=== PATIENT | male | born 1960 | race Caucasian/White ===

== ENCOUNTER 2017-10-14 12:32 | Observation (INO) | payer OTHER ==
[2017-10-14] MEDS ORDERED: SODIUM CHLORIDE 0.9% 1,000 ML IV ONE ×2 (12:50→13:20)
[2017-10-14 13:18] LABS: BASOPHILS # (AUTO) 0.1 10^3/uL (0.0-0.1); BASOPHILS % (AUTO) 0.4 %; EOSINOPHILS # (AUTO) 0.1 10^3/uL (0.0-0.7); HGB - HEMOGLOBIN 15.5 g/dL (14.0-18.0); LYMPHOCYTES % (AUTO) 14.8 %; MEAN CORPUSCULAR VOLUME 93.9 fL (80.0-94.0); MONOCYTES # (AUTO) 1.2 10^3/uL (0.0-1.0); MONOCYTES % (AUTO) 8.8 %; NEUTROPHILS # (AUTO) 10.1 10^3/uL (1.5-6.6); PLT - PLATELET COUNT 370 10^3/uL (130-450); RED BLOOD COUNT 4.84 10^6/uL (4.70-6.10); RED CELL DISTRIBUTION WIDTH 12.5 % (12.0-15.0); WHITE BLOOD COUNT 13.4 x10^3/uL (4.8-10.8)
[2017-10-14 13:22] LABS: ALBUMIN 3.9 g/dL (3.2-5.5); ALBUMIN/GLOBULIN RATIO 1.1 (1.0-2.2); BILIRUBIN,TOTAL 0.7 mg/dL (0.2-1.0); CALCIUM 9.3 mg/dL (8.5-10.3); MAGNESIUM 1.8 mg/dL (1.7-2.8); PHOSPHORUS 2.9 mg/dL (2.5-4.6); TOTAL PROTEIN 7.3 g/dL (6.7-8.2)
--- NOTE | 2017-10-14 13:24 | ED Physician Documentation ---
History of Present Illness - Stated complaint Stated Complaint: PALPITATIONS, BP LOW - Chief complaint Chief Complaint: Cardiac - History obtained from History obtained from: Patient - History of Present Illness Timing: Last night Pain level max: 0 Pain level now: 0 Improved by: nothing Worsened by: nothing - Additonal information Additional information: Patient is a 57-year-old male who presents to the emergency department with palpitations since last night. Pierce lightheaded and dizzy this morning, took his blood pressure and noted it was low. Has never had this occur in the past. He is a diabetic. Also has hypertension and hyperlipidemia. States he was drinking at the [employer] 2 nights ago. Drinks approximately once per month. Occasionally smokes. No history of coronary artery disease. No chest pain. No shortness of breath. Review of Systems Ten Systems: 10 systems reviewed and negative Constitutional: denies: Fever, Chills Eyes: denies: Decreased vision Ears: denies: Ear pain Nose: denies: Rhinorrhea / runny nose, Congestion Throat: denies: Sore throat Cardiac: denies: Chest pain / pressure, Calf pain Respiratory: denies: Cough GI: denies: Abdominal Pain, Nausea, Vomiting, Diarrhea Skin: denies: Rash Musculoskeletal: denies: Neck pain, Back pain Neurologic: denies: Headache PD PAST MEDICAL HISTORY - Past Medical History Past Medical History: Yes Cardiovascular: Hypertension, High cholesterol Respiratory: Sleep apnea, CPAP use Neuro: Migraines Endocrine/Autoimmune: Type 2 diabetes GI: GERD, Diverticulitis : Benign prostate hypertrophy Musculoskeletal: Osteoarthritis, Chronic back pain - Past Surgical History General: Colonoscopy - Present Medications Home Medications: Ambulatory Orders Medication Instructions Recorded Confirmed Aspirin 81 mg PO 10/14/17 Empagliflozin [Jardiance] 10 mg PO 10/14/17 Saxagliptin HCl [Onglyza] 5 mg PO 10/14/17 Simvastatin 20 mg PO 10/14/17 Tamsulosin HCl [Flomax] 0.4 mg PO 10/14/17 Vitamin D3/Folic Acid [Cifrazol 1 each PO 10/14/17 10/14/17 3,775 Unit-1 mg Cap] metFORMIN [Glucophage] 1,000 mg PO BIDWM 10/14/17 10/14/17 - Allergies Allergies/Adverse Reactions: Allergies Allergy/AdvReac Type Severity Reaction Status Date / Time No Known Drug Allergies Allergy Verified 10/14/17 12:44 - Social History Does the pt smoke?: Yes Smoking Status: Current some day smoker Does the pt drink ETOH?: Yes Does the pt have substance abuse?: No PD ED PE NORMAL - Vitals Vital signs reviewed: Yes - General General: Alert and oriented X 3, No acute distress - HEENT HEENT: Moist mucous membranes, Pharynx benign - Neck Neck: Supple, no meningeal sign - Cardiac Cardiac: Other (Irregular) - Respiratory Respiratory: No respiratory distress, Clear bilaterally - Abdomen Abdomen: Soft, Non tender, Non distended - Derm Derm: Warm and dry - Extremities Extremities: No edema, No calf tenderness / cord - Neuro Neuro: Alert and oriented X 3 - Psych Psych: Normal mood, Normal affect Results - Vitals Vitals: Vital Signs - 24 hr 10/14/17 10/14/17 10/14/17 12:40 13:11 14:07 Temperature 36.6 C Heart Rate 84 145 H 88 Respiratory 20 18 17 Rate Blood Pressure 101/68 89/66 L 106/72 O2 Saturation 96 94 97 Oxygen O2 Source Room air - EKG (time done) 1418 Rate: Rate (enter#) (82) Rhythm: NSR [place]: Anterior hemiblock (LAFB) Intervals: Normal MN QRS: Normal Ischemia: Normal ST segments, Other (late R wave transition) 1244 Rate: Rate (enter#) (136) Rhythm: Atrial fibrillation (rvr) [place]: Anterior hemiblock (LAFB) QRS: Normal Ischemia: Non specific changes, Other (late R wave transition) - Labs Labs: Laboratory Tests 10/14/17 10/14/17 10/14/17 13:00 13:00 13:00 WBC 13.4 H RBC 4.84 Hgb 15.5 Hct 45.5 MCV 93.9 MCH 32.0 H MCHC 34.0 RDW 12.5 Plt Count 370 MPV 7.0 L Neut # (Auto) 10.1 H Lymph # (Auto) 2.0 [place] # (Auto) 1.2 H Eos # (Auto) 0.1 Baso # (Auto) 0.1 Absolute Nucleated RBC 0.00 Nucleated RBC % 0.0 Sodium 133 L Potassium 4.2 Chloride 102 Carbon Dioxide 21 Anion Gap 10.0 BUN 19 Creatinine 1.0 Estimated GFR (MDRD) 77 L Glucose 232 H Calcium 9.3 Phosphorus 2.9 Magnesium 1.8 Total Bilirubin 0.7 AST 28 ALT 37 Alkaline Phosphatase 62 Troponin I < 0.04 Total Protein 7.3 Albumin 3.9 Globulin 3.4 Albumin/Globulin Ratio 1.1 Lipase 29 - Rads (name of study) cxr Radiology: Prelim report reviewed, EMP read contemporaneously, See rad report ( No acute pulmonary process. Old right-sided rib deformities consistent with remote rib fractures) PD MEDICAL DECISION MAKING - ED course Complexity details: reviewed results, re-evaluated patient, considered differential, d/w patient, d/w infrastructure consultant ED course: Patient is a 57-year-old male who presents to the emergency department with new onset atrial fibrillation. He was converted with procainamide in the emergency department. Feels much better and blood pressure improved. Concern for possible missed OR, will place in observation for rule out OR. Will also likely receive an echocardiogram. Discussed the case with Dr. Nuñez, hospitalist who accepts. This document was made in part using voice recognition software. While efforts are made to proofread this document, sound alike and grammatical errors may occur. - Sepsis Event Vital Signs: Vital Signs - 24 hr 10/14/17 10/14/17 10/14/17 12:40 13:11 14:07 Temperature 36.6 C Heart Rate 84 145 H 88 Respiratory 20 18 17 Rate Blood Pressure 101/68 89/66 L 106/72 O2 Saturation 96 94 97 Oxygen O2 Source Room air Departure - Departure Disposition: ED Place in Observation Clinical Impression: New onset a-fib Condition: Stable
--- NOTE | 2017-10-14 13:53 | XRAY Report ---
Procedure Date: 10/14/2017 Accession Number: [id number] / [id number] Procedure: XR - Chest 1 View X-Ray CPT Code: 26842 FULL RESULT: EXAM: CHEST RADIOGRAPHY EXAM DATE: 10/14/2017 01:08 PM. CLINICAL HISTORY: New atrial fibrillation. COMPARISON: None. TECHNIQUE: 1 view. FINDINGS: Lungs/Pleura: No focal opacities evident. No pleural effusion. No pneumothorax. Mediastinum: Within exam limitations, the cardiomediastinal contour is normal. Other: Chronic right sixth and seventh rib fractures. IMPRESSION: 1. No acute pulmonary process. 2. Old right-sided rib deformities consistent with remote rib fractures. RADIA
[2017-10-14] MEDS ORDERED: PROCAINAMIDE 1,000 MG in SODIUM CHLORIDE 0.9% 240 ML IV ONE (14:00)
[2017-10-14] MEDS ORDERED: ACETAMINOPHEN 325 MG TABLET PO PRN (14:45)
[2017-10-14] MEDS ORDERED: ONDANSETRON 4 MG/2 ML VIAL IVP PRN (14:45)
[2017-10-14] MEDS ORDERED: TEMAZEPAM 15 MG CAPSULE PO PRN (14:45)
[2017-10-14] MEDS ORDERED: SODIUM CHLORIDE FLUSH 0.9% 10 ML SYRINGE IVP PRN (14:45)
[2017-10-14 15:08] LABS: INR 1.1 (0.8-1.2); PT - PROTHROMBIN TIME 12.3 secs (9.9-12.6)
[2017-10-14] MEDS: SODIUM CHLORIDE FLUSH 0.9% 10 ML SYRINGE IVP SCH (16:35)
[2017-10-14] MEDS: INSULIN ASPART 300 UNIT/3 ML PEN SUBQ SCH ×2 (16:35→20:14)
[2017-10-14 17:22] LABS: MUDS CUTOFF CONCENTRATIONS CUTOFF CONC BELOW:
[2017-10-14 17:25] LABS: BILIRUBIN,URINE NEGATIVE (NEGATIVE); GLUCOSE, URINE (UA) >=1000 mg/dL (NEGATIVE); KETONES,URINE (UA) NEGATIVE (NEGATIVE); LEUKOCYTE ESTERASE, URINE NEGATIVE (NEGATIVE); NITRITE,URINE NEGATIVE (NEGATIVE); OCCULT BLOOD,URINE NEGATIVE (NEGATIVE); PH,URINE 5.5 PH (5.0-7.5); PROTEIN,URINE NEGATIVE (NEGATIVE); UROBILINOGEN,URINE 0.2 (NORMAL) E.U./dL (NORMAL)
[2017-10-14 17:27] LABS: CLARITY,URINE CLEAR (CLEAR)
[2017-10-14 18:05] LABS: AMPHETAMINE SCREEN,URINE NEGATIVE (NEGATIVE); BACTERIA,URINE None Seen /HPF (None Seen); BENZODIAZEPINES SCREEN, URINE NEGATIVE (NEGATIVE); COCAINE SCREEN URINE NEGATIVE (NEGATIVE); METHADONE SCREEN, URINE NEGATIVE (NEGATIVE); METHAMPHETAMINES SCREEN, URINE NEGATIVE (NEGATIVE); OPIATE SCREEN, URINE NEGATIVE (NEGATIVE); OXYCODONE SCREEN, URINE NEGATIVE (NEGATIVE); PROPOXYPHENE SCREEN, URINE NEGATIVE (NEGATIVE); RBC,URINE None Seen /HPF (0-5); SQUAMOUS EPITHELIAL CELL,UR NONE SEEN (<= Few); TRICYCLIC ANTIDEPRESSANT,URINE NEGATIVE (NEGATIVE)
[2017-10-14] MEDS: SODIUM CHLORIDE 0.9% 1,000 ML IV SCH (18:31)
[2017-10-14] MEDS ORDERED: SODIUM CHLORIDE 0.9% 1,000 ML IV SCH (19:00)
[2017-10-15] MEDS: SODIUM CHLORIDE FLUSH 0.9% 10 ML SYRINGE IVP SCH ×2 (00:03→08:26)
--- NOTE | 2017-10-15 05:38 | HISTORY & PHYSICAL EXAMINATION ---
DATE OF SERVICE: 10/14/2017 Physician: Hailey More MD HISTORY OF PRESENT ILLNESS: This is a 57-year-old white male with a history of diabetes on 3 oral agents, followed by the [facility] in [facility] and locally, at the [facility] clinic. He has a history of hypertension and hyperlipidemia, on treatment, sleep apnea on a CPAP machine. The patient is normally a once a week drinker and only smokes when he is out partying. Three days ago, his and children left for a trip to [place] and he has been alone, went out with friends on Sunday night and does admit that he was intoxicated as he needed a ride home , he was smoking cigarettes that night. The following night he went to the [employer], again had alcohol intake and was smoking. This morning he woke up and noticed that he had a rapid heart rate. When he stood up, he was severely dizzy and nearly fell, he did not have full syncope. He checked his blood pressure at this point and it was 70 systolic. With this, he presented to the Emergency Room. He was found to be in new atrial fibrillation with a heart rate of 145 and blood pressure initially of 90 systolic. He was given saline wide open and a Procainamide drip and converted to sinus rhythm in the Emergency Room with heart rates in the 90s. He is being placed in observation for further evaluation of new-onset A-Fib and low blood pressure. PAST MEDICAL HISTORY 1. Diabetes. 2. Hypertension. 3. Hyperlipidemia. 4. Sleep apnea, on CPAP. ALLERGIES: NONE. MEDICATIONS 1. Metformin 1000 mg b.i.d. 2. Flomax 0.4 daily. 3. Simvastatin 20 mg daily. 4. Onglyza 5 mg daily. 5. Jardiance 10 mg daily. 6. Baby aspirin daily. 7. Vitamin D3 with folic acid daily. FAMILY HISTORY: His father had diabetes and coronary artery disease. Mother is alive and has A-Fib. He has 2 siblings who have diabetes, 2 other siblings that are healthy. SOCIAL HISTORY: The patient uses alcohol sporadically, occasionally binge drinks and only on those days does he smoke cigarettes. There is no illicit drug use history. 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 REVIEW OF SYSTEMS: The patient has never experienced chest pain or pressure, even today. He denies any dyspnea on exertion. He has never required a stress test or an Echo. He is followed at the [facility] in [place]. He has a slight headache today. He has BPH. A comprehensive review of systems was performed and the pertinent positives are listed, the rest are negative. PHYSICAL EXAMINATION GENERAL: White male, in no distress. VITAL SIGNS: Blood pressure 106/66, pulse of 80, in sinus rhythm, afebrile, room air saturation 100%. HEENT: Unremarkable. Oral mucosa is moist. NECK: No JVD or carotid bruits. LUNGS: Clear. HEART: Heart sounds normal. No audible murmur. ABDOMEN: Soft, positive bowel sounds, nontender. No organomegaly. EXTREMITIES: No clubbing, cyanosis, edema. NEUROLOGIC: Intact. LABORATORY DATA: Sodium 133, otherwise normal electrolytes, normal BUN and creatinine, normal magnesium of 1.8. Normal liver tests. Troponin not detectable. TSH, T4, and T3 are normal. Blood glucose is 232 on a spot check. White blood count 13.4 with left shift, hemoglobin 15.5, platelet count normal at 360. Urinalysis was negative except for high glucose. Urine toxicology screen was entirely negative. Chest x-ray: unremarkable. EKG: Atrial fib, average rate is 136, left anterior fascicular block, poor R- wave progression and nonspecific ST-T changes. EKG #2 after he converted on procainamide: normal sinus rhythm with left anterior fascicular block and still has poor R-wave progression, but there are normal T waves. IMPRESSION/DIAGNOSES 1. New onset of atrial fibrillation with rapid ventricular rate. This could be due to the recent alcohol binge, or not using his CPAP, but rule out CAD, pulmonary hypertension and hyperthyroidism, as the cause. 2. Hypotension with symptoms of dizziness and near syncope. 3. Probable volume depletion based on his recent history of alcohol binging, the presence of a headache, and hypotension with tachycardia. 4. Sleep apnea, on continuous positive airway pressure (CPAP). 5. Abnormal EKG (poor R wave progression). 6. Diabetes mellitus, on 3 medications orally. 7. Hypertension history. Currently, he is hypotensive. 8. Elevated cholesterol history. PLAN: Place the patient in Observation. Begin telemetry. Cycle troponins x3 to rule out NH. Obtain an Echo to evaluate for structural heart disease. Thyroid function tests have already been checked and are negative. The patient should use his CPAP device today. Begin IV hydration given the low blood pressure and hold the antihypertensive. Start a carb-controlled diet and sliding scale insulin while here, stop the Glucophage in case of need for imaging with dye load and stop his Onglyza and Jardiance. The patient's AARON score is 2 ( hypertension and diabetes). 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 If his Echocardiogram is unremarkable, despite this abnormal EKG, he should be taking 1 adult dose aspirin daily for stroke prevention in paroxysmal A-Fib. If blood pressure is improved tomorrow, his blood pressure medications will be resumed. The patient should also plan to have outpatient stress testing for evaluation of possible coronary ischemic heart disease as the cause of the new onset of Afib. This plan was discussed with the patient. Deep venous thrombosis prophylaxis: Sequential compression devices. CODE STATUS: FULL CODE. ATTESTATION: The patient is expected to be discharged or transferred to another facility within 96 hours: Yes. TD: 10/14/2017 18:29 ALVARO
[2017-10-15 06:02] LABS: CHOLESTEROL 115 mg/dL; HDL CHOLESTEROL 29 mg/dL; LDL CHOLESTEROL,CALCULATED 43 mg/dL; LDL/HDL RATIO 1.5 (<3.6); VLDL CHOLESTEROL 43 mg/dL
[2017-10-15] MEDS: SODIUM CHLORIDE 0.9% 1,000 ML IV SCH (06:03)
[2017-10-15 06:09] LABS: HB2 TOTAL 15.9 g/dL; HEMOGLOBIN A1C % 7.9 % (4.6-6.2)
[2017-10-15] MEDS: INSULIN ASPART 300 UNIT/3 ML PEN SUBQ SCH ×2 (08:23→12:18)
[2017-10-15] MEDS ORDERED: FOLIC ACID 1 MG TABLET PO SCH (09:00)
[2017-10-15] MEDS ORDERED: FAMOTIDINE 20 MG TABLET PO SCH (09:00)
[2017-10-15] MEDS ORDERED: TAMSULOSIN 0.4 MG CAPSULE PO SCH (09:00)
[2017-10-15] MEDS ORDERED: ASPIRIN CHEW 81 MG TABLET PO SCH (09:00)
[2017-10-15] MEDS ORDERED: POLYETHYLENE GLYCOL 3350 17 GM PACKET PO SCH (09:00)
[2017-10-15] MEDS ORDERED: CHOLECALCIFEROL 5,000 UNIT CAPSULE PO SCH (09:00)
--- NOTE | 2017-10-15 10:52 | Discharge Plan ---
Discharge Plan Disposition: 01 Home, Self Care Condition: Stable Diet: Diabetic Activity Restrictions: Activity as Tolerated Shower Restrictions: No Driving Restrictions: No Instruction Topics: Stroke Prevent Live W Atrial Fib, Atrial Fibrillation Additional Instructions or Follow Up instructions: Resume all your pre-hospital medications EXCEPT change the daily baby aspirin to adult dose (325 mg) aspirin daily AND you should either stop the Flomax because your blood pressure is too low, or the dose should be decreased AND you need a much lower dose of Lisinopril, since your BP is low. Your doctor should help you adjust these. Since your blood pressure is still borderline low, you should take plenty of fluids and rest for a few days. See your doctor in follow-up this week to get a return to work release. You should have an outpatient stress test, to complete the work-up of new onset Afib. Also, your CPAP may not be providing the pressure support you need for your sleep apnea, which may have caused the Afib. Therefore, the setting may need adjustment. Your doctor or Sleep Specialist should help you check this. Alcohol binge drinking probably caused this Afib, so it may cause it again. Please drink responsibly. No Smoking: If you smoke, Please STOP! Call for help.
[2017-10-15 11:52] VITALS: BP 108/74
--- NOTE | 2017-10-27 17:53 | DISCHARGE SUMMARY ---
Physician: Hailey More MD DATE OF ADMISSION: 10/14/2017 DATE OF DISCHARGE: 10/15/2017 HISTORY OF PRESENT ILLNESS: This is a 57-year-old white male with a history of diabetes mellitus on 3 oral agents and no insulin, history of hypertension, hyperlipidemia, sleep apnea on CPAP. The patient admitted to having 2 evenings in a row of binge alcohol drinking, awoke after this with rapid heart rate, dizziness on standing, and he nearly fell but did not have full syncope, checked his blood pressure at home which was 70 systolic and came to the emergency room. He was given saline wide open and found to be in new onset of atrial fibrillation with rapid ventricular response. He was put on a procainamide drip and converted to sinus rhythm in the emergency room with heart rates in the 90s. He was placed in Observation for further evaluation of new onset atrial fibrillation and low blood pressure. HOSPITAL COURSE AND DISCHARGE DIAGNOSES 1. New onset of atrial fibrillation. The patient's thyroid level was within normal limits. Troponins were within normal limits. A resting Echo showed normal left ventricular size and ejection fraction of 70% to 75%, normal right ventricular size and function, pulmonary artery pressure 31 mmHg (WNL). The patient's resting EKG showed atrial fibrillation with poor R-wave progression and lateral T-wave flattening during atrial fibrillation, whereas, in sinus rhythm, the T-wave flattening resolved, but poor R-wave progression persisted. 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 His CHADS score equals 0. Therefore, baby aspirin daily is advised for management and outpatient stress testing should be done because of the abnormal EKG. 2. Hypotension. The patient reported that this was noticed from recently starting Flomax in addition to his high urine output, being on Jardiance. Also, he was volume depleted from his recent 2 nights of binge alcohol drinking. The patient required saline volume replacement and blood pressure was stable at discharge. 3. Volume depletion. This was felt to be from binge drinking, high urine output from Jardiance, and the effect of Flomax. 4. Obstructive sleep apnea on continuous positive airway pressure. Patient's home continuous positive airway pressure was ordered; however, no one was at home to bring this in for him for his one night overnight stay. 5. Abnormal EKG. The patient still requires outpatient stress testing for complete workup for etiologies of new onset atrial fibrillation. 6. Diabetes. The patient was on a carbohydrate-controlled diet and sliding scale insulin while here, and his oral diabetic agents. 7. Hypertriglyceridemia. Lipid test done here showed total cholesterol of 115 , LDL 43, triglycerides 213, HDL 29. Management of his underlying diabetes is of primary importance. His A1c was 7.9. LABORATORIES AND IMAGING: Reviewed and summarized above. PHYSICAL EXAMINATION AT DISCHARGE VITAL SIGNS: Stable. Blood pressure 108/74, pulse 70, in sinus rhythm, afebrile, room air saturation 96%. HEENT: Unremarkable. NECK: Without JVD or carotid bruits. CHEST: Clear. HEART: Sounds normal. No murmur. ABDOMEN: Soft, benign. EXTREMITIES: Without edema. NEUROLOGIC: Intact. FOLLOWUP: [facility] and outpatient stress testing is advised. CODE STATUS: FULL CODE. Time required to complete this entire discharge, chart review, dictation: 40 minutes. TD: 10/27/2017 17:00 ALVARO
== END 2017-10-15 12:40 | disposition home or self-care (01) ==
LOC: ED 12:32 → MS2 14:45
PROVIDERS: ADMIT Internal Medicine; ATTEND Internal Medicine
DX: I48.91 Unspecified atrial fibrillation (principal); I48.0 Paroxysmal atrial fibrillation; I95.9 Hypotension, unspecified; E86.9 Volume depletion, unspecified; G47.33 Obstructive sleep apnea (adult) (pediatric); R94.31 Abnormal electrocardiogram [ECG] [EKG]; E11.9 Type 2 diabetes mellitus without complications; E78.1 Pure hyperglyceridemia; I10 Essential (primary) hypertension; E78.5 Hyperlipidemia, unspecified; N40.0 Benign prostatic hyperplasia without lower urinary tract symptoms; Z79.84 Long term (current) use of oral hypoglycemic drugs; Z79.82 Long term (current) use of aspirin; Z79.899 Other long term (current) drug therapy; Z72.89 Other problems related to lifestyle
CPT/HCPCS: 36415; 71045; 80053; 80061; 80306; 81001; 83036; 83690; 83735; 84100; 84439; 84443; 84481; 84484; 85025; 85610; 93005; 93306; 96361; 96365; 96366; 99284; 99285; A9270; G0378; J2690; 83721; 87086

== ENCOUNTER 2018-04-19 09:27 | Emergency (ER) | payer OTHER ==
[2018-04-19 09:55] VITALS: BP 119/83
[2018-04-19] MEDS ORDERED: ERYTHROMYCIN OPHTH OINT 1 GM TUBE RIGHTEYE STA (11:24)
--- NOTE | 2018-04-19 11:24 | ED Physician Documentation ---
PD HPI OPHTHO - Stated complaint Stated Complaint: R EYE IRRITATION - Chief complaint Chief Complaint: Heent - History obtained from History obtained from: Patient - History of Present Illness Timing - onset: How many days ago (2) Timing - duration: Days (2) Timing - details: Still present Location: Right Associated symptoms: Swelling (Swelling of right upper eyelid.) Contributing factors: Wears glasses Similar symptoms before: Diagnosis (Reports history of a stye involving the left upper eyelid about one month ago.) - Additional information Additional information: The patient is a 57-year-old male who presents with irritation of his right eye. He first noticed it 2 days ago and it has continued since that time. He has noticed swelling of the upper eyelid with tenderness to palpation. There has been excessive tearing from his eye. He has a history of a stye involving the left upper eyelid about one month ago, and is concerned that this may be the same thing involving his right upper eyelid. He normally wears corrective lenses, but is not wearing his glasses today. Review of Systems Constitutional: denies: Fever Eyes: reports: Irritation. denies: Decreased vision Nose: denies: Congestion Throat: denies: Sore throat Respiratory: denies: Cough GI: denies: Nausea Neurologic: denies: Headache PD PAST MEDICAL HISTORY - Past Medical History Past Medical History: Yes Cardiovascular: High cholesterol, Atrial fibrillation Respiratory: Sleep apnea, CPAP use Neuro: Migraines, Other Endocrine/Autoimmune: Type 2 diabetes GI: GERD, Diverticulitis : Benign prostate hypertrophy HEENT: Chronic vision loss Psych: None Musculoskeletal: Osteoarthritis, Chronic back pain, Other Derm: None - Past Surgical History Past Surgical History: Yes General: Colonoscopy - Present Medications Home Medications: Ambulatory Orders Medication Instructions Recorded Confirmed Aspirin 325 mg PO DAILY 10/14/17 04/19/18 Empagliflozin [Jardiance] 25 mg PO DAILY 10/14/17 04/19/18 Vitamin D3/Folic Acid [Cifrazol 1 each PO DAILY 10/14/17 04/19/18 3,775 Unit-1 mg Cap] metFORMIN [Glucophage] 1,000 mg PO BIDWM 10/14/17 04/19/18 Omeprazole [PriLOSEC] 20 mg PO DAILY 10/15/17 10/15/17 Atorvastatin [Lipitor] 20 mg ORAL DAILY 12/21/18 12/21/18 Erythromycin Base [Erythromycin 3.5 gm OP QID #1 oint...g. 04/19/18 Ophthalmic Ointment] Glimepiride 4 mg ORAL DAILY 04/19/18 04/19/18 Metoprolol Succinate 25 mg BID 04/19/18 04/19/18 - Allergies Allergies/Adverse Reactions: Allergies Allergy/AdvReac Type Severity Reaction Status Date / Time No Known Drug Allergies Allergy Verified 04/19/18 09:55 - Social History Does the pt smoke?: No Smoking Status: Never smoker Does the pt drink ETOH?: Yes ETOH Use: Beer Does the pt have substance abuse?: No - Immunizations Immunizations are current?: Yes - POLST Patient has POLST: No PD ED PE NORMAL - Vitals Vital signs reviewed: Yes (normal) - General General: Alert and oriented X 3, Well developed/nourished - HEENT HEENT: Atraumatic, PERRL, EOMI, Pharynx benign, Other (The right upper eyelid is swollen at the medial third, with associated erythema and mild tenderness to palpation, consistent with hordeolum. Conjunctiva is clear. Visual acuity is 20/40 in the left eye and 20/30 in the right, without correction.) - Neck Neck: No adenopathy - Respiratory Respiratory: No respiratory distress - Derm Derm: No rash - Neuro Neuro: Alert and oriented X 3, Normal speech Results - Vitals Vitals: Oxygen O2 Source Room air PD MEDICAL DECISION MAKING - ED course Complexity details: reviewed old records, considered differential, d/w patient ED course: The patient's presentation is most consistent with hordeolum of the right upper eyelid. There is no evidence to suggest conjunctivitis or periorbital cellulit is. Treatment in the emergency department included administration of erythromycin ophthalmic ointment. The remainder of the tube was dispensed for the patient's continued use. I discussed with him the expected course of illness, antibiotic and symptomatic treatment, as well as potentially worrisome signs or symptoms that should prompt reevaluation. Departure - Departure Disposition: 01 Home, Self Care Clinical Impression: Hordeolum externum (stye) Qualifiers: Laterality: right Eyelid: upper Qualified Code(s): H00.011 - Hordeolum externum right upper eyelid Condition: Stable Instructions: ED Hordeolum Follow-Up: Matilde Hollis MD [Primary Care Provider] - Prescriptions: Erythromycin Base [Erythromycin Ophthalmic Ointment] 3.5 gm OP QID #1 oint...g. Comments: Apply erythromycin ophthalmic ointment to your right eye 4 times daily for the next 3 days. Apply hot compresses to the right eye several times daily. Follow-up with your primary physician within 1 week. Call to schedule appointment. Return to the emergency department if you develop increasing redness or swelling of your eyelid, or otherwise worsening symptoms. Discharge Date/Time: 04/19/18 11:38
== END 2018-04-19 11:38 | disposition home or self-care (01) ==
LOC: ED 09:27
DX: H00.011 Hordeolum externum right upper eyelid (principal); E11.9 Type 2 diabetes mellitus without complications; E78.00 Pure hypercholesterolemia, unspecified; Z79.82 Long term (current) use of aspirin
CPT/HCPCS: 99283; J3490

== ENCOUNTER 2018-06-14 13:32 | Emergency (ER) | payer OTHER ==
[2018-06-14 14:57] LABS: BASOPHILS # (AUTO) 0.1 10^3/uL (0.0-0.1); BASOPHILS % (AUTO) 1.1 %; EOSINOPHILS # (AUTO) 0.2 10^3/uL (0.0-0.7); EOSINOPHILS % (AUTO) 1.7 %; HGB - HEMOGLOBIN 15.4 g/dL (14.0-18.0); LYMPHOCYTES # (AUTO) 1.9 10^3/uL (1.5-3.5); LYMPHOCYTES % (AUTO) 19.8 %; MEAN CORPUSCULAR HEMOGLOBIN 32.7 pg (27.0-31.0); MEAN CORPUSCULAR VOLUME 93.5 fL (80.0-94.0); MONOCYTES % (AUTO) 10.2 %; NEUTROPHILS # (AUTO) 6.5 10^3/uL (1.5-6.6); NEUTROPHILS % (AUTO) 67.2 %; PLT - PLATELET COUNT 354 10^3/uL (130-450); RED BLOOD COUNT 4.69 10^6/uL (4.70-6.10); RED CELL DISTRIBUTION WIDTH 13.3 % (12.0-15.0); WHITE BLOOD COUNT 9.6 x10^3/uL (4.8-10.8)
--- NOTE | 2018-06-14 15:03 | ED Physician Documentation ---
History of Present Illness - Stated complaint Stated Complaint: LIGHT HEADED, BLOOD PRESSURE HIGH - Chief complaint Chief Complaint: Neuro - History obtained from History obtained from: Patient - Additonal information Additional information: The patient is a 58-year-old type II diabetic male who is concerned about his high blood pressure. He states that while at home this morning he felt a little "spacey," and had brief flutters in his chest. He checked his blood pressure and thinks it was 137/90. He was concerned about that being high, so presents to the emergency department. He denies any visual disturbance, chest pain, shortness of breath, nausea or vomiting. He denies fever, cough, urinary symptoms, numbness or weakness. His past medical history is significant for atrial fibrillation that converted with IV metoprolol. He also has history of migraine headaches. His current blood pressure medication is metoprolol 25 mg twice daily. Review of Systems Constitutional: denies: Fever, Fatigue Eyes: denies: Decreased vision Ears: denies: Tinnitus/ringing Nose: denies: Congestion Throat: denies: Sore throat Cardiac: denies: Chest pain / pressure Respiratory: denies: Dyspnea, Cough GI: denies: Abdominal Pain, Nausea, Vomiting : denies: Dysuria Skin: denies: Rash Musculoskeletal: denies: Back pain, Extremity pain Neurologic: denies: Focal weakness, Numbness, Altered mental status, Headache PD PAST MEDICAL HISTORY - Past Medical History Past Medical History: Yes Cardiovascular: Hypertension, High cholesterol, Atrial fibrillation Respiratory: Sleep apnea, CPAP use Neuro: Migraines, Other Endocrine/Autoimmune: Type 2 diabetes GI: GERD, Diverticulitis : Benign prostate hypertrophy HEENT: Chronic vision loss Psych: None Musculoskeletal: Osteoarthritis, Chronic back pain, Other Derm: None - Past Surgical History Past Surgical History: Yes General: Colonoscopy - Present Medications Home Medications: Ambulatory Orders Medication Instructions Recorded Confirmed Aspirin 325 mg PO DAILY 10/14/17 04/19/18 Empagliflozin [Jardiance] 25 mg PO DAILY 10/14/17 04/19/18 Vitamin D3/Folic Acid [Cifrazol 1 each PO DAILY 10/14/17 04/19/18 3,775 Unit-1 mg Cap] metFORMIN [Glucophage] 1,000 mg PO BIDWM 10/14/17 04/19/18 Omeprazole [PriLOSEC] 20 mg PO DAILY 10/15/17 10/15/17 Atorvastatin [Lipitor] 20 mg ORAL DAILY 04/19/18 04/19/18 Glimepiride 4 mg ORAL DAILY 04/19/18 04/19/18 Metoprolol Succinate 25 mg BID 04/19/18 04/19/18 - Allergies Allergies/Adverse Reactions: Allergies Allergy/AdvReac Type Severity Reaction Status Date / Time No Known Drug Allergies Allergy Verified 06/14/18 13:42 - Social History Does the pt smoke?: No Smoking Status: Never smoker Does the pt drink ETOH?: Yes Does the pt have substance abuse?: No - Immunizations Immunizations are current?: Yes - POLST Patient has POLST: No PD ED PE NORMAL - Vitals Vital signs reviewed: Yes (Hypertensive, at 150/91.) - General General: Alert and oriented X 3, Well developed/nourished - HEENT HEENT: Atraumatic, PERRL, EOMI, Ears normal, Pharynx benign, Other (Fundi without papilledema.) - Neck Neck: Supple, no meningeal sign, No adenopathy, No JVD - Cardiac Cardiac: RRR, No murmur - Respiratory Respiratory: No respiratory distress, Clear bilaterally - Abdomen Abdomen: Soft, Non tender - Back Back: No CVA TTP - Derm Derm: No rash - Extremities Extremities: No edema, No calf tenderness / cord - Neuro Neuro: Alert and oriented X 3, No motor deficit, No sensory deficit, Normal speech Results - Vitals Vitals: Oxygen O2 Source Room air - EKG (time done) 14:32 Rate: Rate (enter#) (74) Rhythm: NSR [facility]: Anterior hemiblock QRS: Poor R wave progression Ischemia: Non specific changes (Diffuse T-wave flattening.) Compare to prior EKG: Changed from prior EKG (Compared to previous EKG of 10/14/2017, no longer in atrial fibrillation.) Computer interpretation: Agree with computer - Labs Labs: Laboratory Tests 06/14/18 06/14/18 06/14/18 13:45 14:44 14:44 WBC 9.6 RBC 4.69 L Hgb 15.4 Hct 43.9 MCV 93.5 MCH 32.7 H MCHC 35.0 RDW 13.3 Plt Count 354 MPV 7.0 L Neut # (Auto) 6.5 Lymph # (Auto) 1.9 Glynn # (Auto) 1.0 Eos # (Auto) 0.2 Baso # (Auto) 0.1 Absolute Nucleated RBC 0.00 Nucleated RBC % 0.0 Sodium 141 Potassium 3.8 Chloride 104 Carbon Dioxide 24 Anion Gap 13.0 BUN 16 Creatinine 0.8 Estimated GFR (MDRD) 100 Glucose 166 H POC Whole Bld Glucose 194 H Calcium 9.3 Total Bilirubin 0.8 AST 35 ALT 47 Alkaline Phosphatase 70 Troponin I Total Protein 7.0 Albumin 4.0 Globulin 3.0 Albumin/Globulin Ratio 1.3 Lipase 33 06/14/18 14:44 WBC RBC Hgb Hct MCV MCH MCHC RDW Plt Count MPV Neut # (Auto) Lymph # (Auto) Glynn # (Auto) Eos # (Auto) Baso # (Auto) Absolute Nucleated RBC Nucleated RBC % Sodium Potassium Chloride Carbon Dioxide Anion Gap BUN Creatinine Estimated GFR (MDRD) Glucose POC Whole Bld Glucose Calcium Total Bilirubin AST ALT Alkaline Phosphatase Troponin I < 0.04 Total Protein Albumin Globulin Albumin/Globulin Ratio Lipase PD MEDICAL DECISION MAKING - ED course Complexity details: reviewed results, re-evaluated patient, considered differential, d/w patient ED course: The underlying cause for the patient's transient hypertension is unclear at this time. There is no evidence of cardiac ischemia, neurologic deficit, or acute renal failure. CBC and chemistry panel are normal except for a mildly elevated blood sugar of 166. The patient's blood pressure while in the emergency department came down spontaneously to 118/73. No treatment at this time is clinically warranted. The patient was totally asymptomatic. I discussed with him the results of his lab work and his normal electrocardiogram, advised outpatient follow-up, as well as discussed potentially worrisome signs or symptoms that should prompt reevaluation in the emergency department. Departure - Departure Disposition: Home, Self Care Clinical Impression: Hypertension Qualifiers: Hypertension type: unspecified secondary hypertension Qualified Code(s): I15.9 - Secondary hypertension, unspecified Diabetes mellitus with hyperglycemia Qualifiers: Diabetes mellitus type: type 2 Diabetes mellitus fci insulin use: without fci use Qualified Code(s): E11.65 - Type 2 diabetes mellitus with hyperglycemia Condition: Stable Instructions: ED HTN Established Follow-Up: Matilde Hollis MD [Primary Care Provider] - Comments: Continue your high blood pressure and diabetes medication as previously prescribed. Follow-up with your primary physician within 1-2 weeks. Call to schedule an appointment. Return to the emergency department if you develop recurrent or increasing lightheadedness, palpitations, or otherwise worsening symptoms. Discharge Date/Time: 06/14/18 16:05
[2018-06-14 15:10] LABS: ALBUMIN/GLOBULIN RATIO 1.3 (1.0-2.2); BILIRUBIN,TOTAL 0.8 mg/dL (0.2-1.0); CALCIUM 9.3 mg/dL (8.5-10.3); CREATININE 0.8 mg/dL (0.6-1.2)
[2018-06-14 15:46] VITALS: BP 118/73
== END 2018-06-14 16:05 | disposition home or self-care (01) ==
LOC: ED 13:32
DX: I15.9 Secondary hypertension, unspecified (principal); E11.65 Type 2 diabetes mellitus with hyperglycemia; I44.4 Left anterior fascicular block; E78.00 Pure hypercholesterolemia, unspecified; Z79.82 Long term (current) use of aspirin
CPT/HCPCS: 36415; 80053; 83690; 84484; 85025; 93005; 99283; 99284